=== PATIENT | female | born 1960 | race Caucasian/White ===

== ENCOUNTER → 2017-07-02 | Outpatient (CLI) | payer OTHER ==
--- NOTE | ~2017-07-02 | CR169 ---
[facility] [place]. [facility] A Service of [facility] & [facility] RADIOLOGY TEXT RESULTS PATIENT: FRANCK WALKER LOCATION: [facility] : 58 UNIT #: [id number] AGE: [address]: Hue Helm SEX: F ORDER DR: [id number] [address] [address] [id number] O MR#: [id number] Acc #: [id number] NAME: FRANCK WALKER : 1960 SEX: F STUDY DATE/TIME: 07/02/2017 9:07 UNIT: [facility] ROOM: STUDY DESCRIPTION: CR Knee 2 Views Lt Attending Physician: Hue Helm A.P.R.N. Referring Physician: Hue Helm A.P.R.N. Ordering Physician: Hue Helm A.P.R.N. Primary Care Physician: Hue Helm A.P.R.N. MEDICAL IMAGING REPORT This report is preliminary unless electronic signature is present. EXAM Left knee 2 views 07/02/2017 HISTORY Left knee pain for 2 years. Arthritis. Pain diffusely across left knee. No known injury. FINDINGS 2 views of the left knee demonstrate no fracture. There is degenerative change with small osteophytes bordering the medial compartment of the knee and along the posterior aspect of the patella. The bones are normally mineralized, and the joint spaces normally maintained. There is no joint effusion. IMPRESSION Minimal degenerative change, left knee. No acute abnormality. Dictated by... Clayton Lopez M.D. THIS IS AN ELECTRONICALLY VERIFIED REPORT Clayton Lopez M.D. at 07/03/2017 7:33 AM DINORA/darlene TD: 07/02/2017 13:04 JOB #: [id number] MEDICAL IMAGING REPORT Page 1 of 1
--- NOTE | ~2017-07-02 | CR170 ---
[facility] A Service of [facility] & [facility] RADIOLOGY TEXT RESULTS PATIENT: FRANCK WALKER LOCATION: [facility] : 58 UNIT #: [id number] AGE: [address]: Hue Helm SEX: F ORDER DR: [id number] [address] [address] [id number] O MR#: [id number] Acc #: [id number] NAME: FRANCK WALKER : 1960 SEX: F STUDY DATE/TIME: 07/02/2017 9:07 UNIT: [facility] ROOM: STUDY DESCRIPTION: CR Knee 2 Views Rt Attending Physician: Hue Helm A.P.R.N. Referring Physician: Hue Helm A.P.R.N. Ordering Physician: Hue Helm A.P.R.N. Primary Care Physician: Hue Helm A.P.R.N. MEDICAL IMAGING REPORT This report is preliminary unless electronic signature is present. EXAM Right knee 2 views 07/02/2017 HISTORY Right knee pain for 2 years. No known injury, right knee arthritis. FINDINGS Two views of the right knee demonstrate no fracture. There is minimal osteophytic spurring about the femoral condyles and along the posterior aspect of the patella. Additionally there is degenerative subchondral cyst formation involving the patellofemoral joint. The bones are otherwise normally mineralized and the joint spaces normally maintained. There is no joint effusion. IMPRESSION Degenerative change involving the right knee. No acute abnormality. Dictated by... Clayton Lopez M.D. THIS IS AN ELECTRONICALLY VERIFIED REPORT Clayton Lopez M.D. at 07/03/2017 7:32 AM DINORA/rosalee TD: 07/02/2017 11:46 JOB #: [id number] MEDICAL IMAGING REPORT Page 1 of 1
== END | disposition home or self-care (01) ==
LOC: SRAD 09:00
DX: M25.561 Pain in right knee (principal); M25.562 Pain in left knee; M17.0 Bilateral primary osteoarthritis of knee
CPT/HCPCS: 73560